=== PATIENT | female | born 1935 | race Caucasian/White ===

== ENCOUNTER → 2017-03-14 | Outpatient (CLI) | payer MEDICARE ==
--- NOTE | 2017-03-14 12:55 | REPMRS ---
Patient History The patient states she has not had a clinical breast exam in over a year. 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 No known family history of cancer. Malignant excisional biopsy of the left breast, 1993. Radiation therapy of the left breast, 1993. Digital Woman Screen Mammo: March 14, 2017 - Exam #: [id number] Bilateral CC and MLO view(s) were taken. Technologist: Arabella Gayle, Technologist Prior study comparison: March 13, 2016, digital woman screen mammo performed at [facility]. March 09, 2015, digital woman screen mammo performed at [facility]. FINDINGS: There are scattered fibroglandular densities. There has been no change in the appearance of the mammogram from the prior studies. There is a mild amount of residual fibroglandular tissue which is fairly symmetric. There is no interval development of dominant mass, architectural distortion, or clustered microcalcification suggestive of malignancy. ASSESSMENT: BI-RADS/ACR category 1 mammogram. Negative. Recommendation Routine screening mammogram in 1 year (for women over age 40). This mammogram was interpreted with the aid of an FDA-approved computer-aided dectection system. Electronically Signed By: Aldo Santiago MD 03/14/17 [id number]
== END ==
LOC: M WHC 10:35
PROVIDERS: ATTEND Family Medicine
DX: Z12.31 Encounter for screening mammogram for malignant neoplasm of breast (principal); Z78.0 Asymptomatic menopausal state; Z92.0 Personal history of contraception; Z85.3 Personal history of malignant neoplasm of breast